=== PATIENT | female | born 1995 | race Hispanic/Latino ===

== ENCOUNTER 2017-07-11 23:22 | Emergency (ER) | payer MEDICAID ==
[2017-07-11 23:45] VITALS: BP 93/57; PULSE 58; RESP 20; TEMP 97.8; O2SAT 99
--- NOTE | 2017-07-12 00:53 | C.PDOC ---
History Of Present Illness 22 year old female who presents to the ER with a lump to the left side of her scalp. Patient reports the lump is painful on palpation; denies trauma, head injury, recent fall, headache, or dizziness. Time Seen by Provider: 07/11/17 23:46 Chief Complaint (Nursing): Abnormal Skin Integrity History Per: Patient History/Exam Limitations: no limitations Onset/Duration Of Symptoms: Days Current Symptoms Are (Timing): Still Present Location Of Injury: Left: Head Quality Of Symptoms: Other (Lump) Recent travel outside of the [place]: No Past Medical History Reviewed: Historical Data, Nursing Documentation, Vital Signs Vital Signs: Last Vital Signs Temp 97.8 F 07/11/17 23:41 Pulse 58 L 07/11/17 23:41 Resp 20 07/11/17 23:41 BP 93/57 L 07/11/17 23:41 Pulse Ox 99 07/12/17 04:41 - Medical History PMH: No Chronic Diseases Surgical History: No Surg Hx Family History: States: Unknown Family Hx - Social History Hx Tobacco Use: No Hx Alcohol Use: No Hx Substance Use: No - Immunization History Hx Influenza Vaccination: No Hx Pneumococcal Vaccination: No Review Of Systems Skin: Positive for: Other (Lump to left scalp) Neurological: Negative for: Headache, Dizziness Physical Exam - Physical Exam Appears: Non-toxic, No Acute Distress Skin: Normal Color, Warm, Dry Head: Atraumatic, Normacephalic, Other (Small erythematous papule to left parietal scalp area at the base of hair follicle,no pustule,no fluctuant mass) Eye(s): bilateral: Normal Inspection, EOMI Ear(s): Bilateral: Normal Oral Mucosa: Moist Neck: Normal, Supple Neurological/Psych: Oriented x3, Normal Speech, Normal Cognition ED Course And Treatment O2 Sat by Pulse Oximetry: 99 (Room air) Pulse Ox Interpretation: Normal Progress Note: Patient reassured, instructed to apply warm compress and bacitracin, and instructed to follow up with PMD for further evaluation. Disposition Counseled Patient/Family Regarding: Diagnosis, Need For Followup, Rx Given - Disposition Disposition: HOME/ ROUTINE Disposition Time: 00:51 Condition: STABLE Additional Instructions: Please follow up with PMD Apply warm compress to area Apply bacitracin to area Return to ER if worse Instructions: Folliculitis (ED) Forms: [facility] (Amharic) - Clinical Impression Clinical Impression: Folliculitis - Scribe Statement The provider has reviewed the documentation as recorded by the Scribe Chuy Mena All medical record entries made by the Scribe were at my direction and personally dictated by me. I have reviewed the chart and agree that the record accurately reflects my personal performance of the history, physical exam, medical decision making, and the department course for this patient. I have also personally directed, reviewed, and agree with the discharge instructions and disposition.
== END 2017-07-12 00:56 | disposition home or self-care (01) ==
LOC: C.ER 23:22
DX: L73.9 Follicular disorder, unspecified (principal)